=== PATIENT | female | born 1995 | race Caucasian/White ===

== ENCOUNTER 2023-07-21 21:07 | Emergency (ER) | payer OTHER, SELFPAY ==
[2023-07-21 21:09] VITALS: BP 157/89; PULSE 130; RESP 18; TEMP 37.8; O2SAT 97; BMI 34.3
--- NOTE | 2023-07-21 21:50 | XR_ITS ---
The [address] [address] Patient Name: CLARITA SOTELO MRN: [id number] date: 1995 Sex: F Assigned Patient Location: ER Current Patient Location: ER Accession/Order Number: [id number] Exam Date: 07/21/2023 22:25 Report Date: 07/21/2023 23:02 At the request of: GINGER MARKER Procedure: XR chest 2V EXAMINATION: XR chest 2V HISTORY: Cough and shortness of breath COMPARISON: None. TECHNIQUE: PA and lateral chest x-rays FINDINGS: The lung parenchyma is free of consolidation or infiltrate. No pneumothorax or pleural effusion. The cardiac, mediastinal and hilar contours are normal. The visualized osseous structures exhibit no gross abnormality. XR/XR chest 2V IMPRESSION: No acute cardiopulmonary abnormality. Electronically authenticated by: FREDDY ALVES Date: 07/21/2023 23:02
--- NOTE | 2023-07-21 21:53 | ED.URI1 ---
HPI - URI/Sore Throat General Chief Complaint: Upper Respiratory Infection Stated Complaint: SOB Time Seen by Provider: 07/21/23 21:43 History of Present Illness HPI Narrative: This 27-year-old female presents for evaluation of a nonproductive cough since last Tuesday, she states she has taken multiple [id number] things without relief. She has been using a Flovent inhaler and albuterol inhaler. She states that the inhalers just increase her heart rate but do not keep her from coughing. She states the cough is worse at night. She denies any chest pain. She does have a history of tachycardia and is not currently on any medications for that. She denies any dizziness or syncope. She was unaware that she had a low-grade fever. She states her symptoms started with a sore throat and has spread into her chest and she has been coughing ever since. She does not smoke. She does have a nebulizer machine at home. She is not vaccinated against Covid 19. She has no abdominal pain, nausea, vomiting or diarrhea. She denies any body aches or lower extremity pain or swelling. Related Data Home Medications Medication Instructions Recorded Confirmed No Known Home Medications 07/21/23 07/21/23 Allergies Allergy/AdvReac Type Severity Reaction Status Date / Time No Known Drug Allergies Allergy Verified 07/21/23 21:13 Review of Systems ROS Status of ROS 10 or more systems reviewed and unremarkable except as noted in history and below [facility] Social History Smoking status: Never smoker Exam Narrative Exam Narrative: Nurses note and vital signs reviewed; The patient is febrile with a temperature 100.1 and tachycardic with pulse of 1:30, blood pressure is elevated at 157/89, she is not hypoxic with pulse ox of 97 percent on room air General: The patient appears well and in no apparent distress. Patient is resting comfortably on cart. Skin: Warm, dry, no pallor noted. There is no rash noted. Head: Normocephalic, atraumatic Eye: Normal conjunctiva, no drainage, EOMI. PERRL Ears, Nose, Mouth, and Throat: oral mucosa is moist. Nares patent. Posterior pharynx is normal in appearance Cardiovascular: Regular Rate and Rhythm, tachycardic at 130 at triage Respiratory: Patient is in no distress, no accessory muscle use, lungs are clear to auscultation, no wheezing, rales or rhonchi, no cough appreciated during exam Back: non-tender, no CVA tenderness bilaterally to percussion. GI: Normal bowel sounds, no tenderness to palpation, no masses appreciated. No rebound, guarding, or rigidity noted. Musculoskeletal: The patient has no evidence of calf tenderness, no pitting edema, symmetrical pulses noted bilaterally Neurological: A&O x4, normal speech Psychiatric: Cooperative Constitutional Vital Signs, click to edit/add: Last Vital Signs Temp 100.1 F 07/21/23 21:09 Pulse 130 H 07/21/23 21:09 Resp 18 07/21/23 21:09 BP 157/89 H 07/21/23 21:09 Pulse Ox 97 07/21/23 21:09 O2 Del Method Room Air 07/21/23 21:09 Course Vital Signs Vital signs: Vital Signs Temperature 100.1 F 07/21/23 21:09 Pulse Rate 130 H 07/21/23 21:09 Respiratory Rate 18 07/21/23 21:09 Blood Pressure 157/89 H 07/21/23 21:09 Pulse Oximetry 97 07/21/23 21:09 Oxygen Delivery Method Room Air 07/21/23 21:09 Temperature 100.1 F 07/21/23 21:09 Pulse Rate 130 H 07/21/23 21:09 Respiratory Rate 18 07/21/23 21:09 Blood Pressure 157/89 H 07/21/23 21:09 Pulse Oximetry 97 07/21/23 21:09 Oxygen Delivery Method Room Air 07/21/23 21:09 MDM - URI/Sore Throat MDM Narrative Medical decision making narrative: 27-year-old female, nonsmoker presents for evaluation of approximately one week of upper respiratory symptoms with cough which is worse at night keeping her awake with bronchospasm and inability to take a deep breath without coughing. She has noted to have a low-grade fever upon arrival and was tachycardic 1:30. She states this is typical for her because she has a history of tachycardia. She denies any chest pain, dizziness or syncope. She has no abdominal pain nausea or vomiting. Her lungs are clear and her physical exam was benign. Her pulse ox is normal. She has not been vaccinated against Covid. I was to give her a nebulizer treatment but in order to do that she needs to have a negative Covid test. We tested her for covert and was negative. Chest x-rays read by radiology as normal. She received a Xopenex treatment with mild clinical improvement. She will be discharged home with a prescription for Xopenex, Medrol Dosepak and Hycodan to use at night for cough. She is otherwise well appearing and stable for discharge. Lab Data Labs: Lab Results 07/21/23 Range/Units 21:53 SARS-CoV-2 (PCR) Negative (NEGATIVE) Discharge Plan Discharge Chief Complaint: Upper Respiratory Infection Clinical Impression: Viral upper respiratory tract infection with cough Patient Disposition: Home, Self-Care Time of Disposition Decision: 23:18 Condition: Good Prescriptions / Home Meds: No Action No Known Home Medications Instructions: Upper Respiratory Infection (ED), Bronchospasm (ED) Stand Alone Forms: Portal Instructions Referrals: DANNY SEE [Primary Care Provider] - 1 week
[2023-07-21 23:02] LABS: SARS-CoV-2 Ag NEGATIVE (NEGATIVE)
[2023-07-21] MEDS: LEVALBUTEROL HCL 1.25 MG/3 ML VIAL NEB IH (23:18)
[2023-07-21 23:23] VITALS: PULSE 111; RESP 16; O2SAT 98
[2023-07-23 14:37] LABS: SARS-CoV-2 NAA NOT DETECTED (NOT DETECTE)
== END 2023-07-22 00:07 | disposition home or self-care (01) ==
PROVIDERS: Emergency Provider Emergency Medicine; PCP Nurse Practitioner Family
DX: J06.9 Acute upper respiratory infection, unspecified (principal); R05.9 Cough, unspecified; Z28.310 Unvaccinated for COVID-19
CPT/HCPCS: 71046; 87635; 87811; 94640; 99284